=== PATIENT | female | born 2000 | race African-American/Black ===

== ENCOUNTER 2019-09-21 10:43 | Emergency (ER) | payer MEDICAID ==
[~2019-09-21] VITALS: Ht 170.2 cm; Wt 77.0 kg
[2019-09-21] MEDS ORDERED: TETANUS, DIPHTHERIA, PERTUSSIS VAC/PF 0.5ML (>7YR OLD) IM ONE (11:45)
[2019-09-21] MEDS ORDERED: BACITRACIN ZINC OINT UDPKT TOP ONE (11:45)
[2019-09-21] MEDS ORDERED: IBUPROFEN 600MG TABLET PO ONE (11:45)
[2019-09-21 12:18] VITALS: BP 134/90
== END 2019-09-21 12:22 | disposition home or self-care (01) ==
LOC: ER 10:43
DX: S01.511A Laceration without foreign body of lip, initial encounter (principal); Z88.8 Allergy status to other drugs, medicaments and biological substances; X58.XXXA Exposure to other specified factors, initial encounter; Y93.89 Activity, other specified; Y92.89 Other specified places as the place of occurrence of the external cause; Y99.8 Other external cause status
CPT/HCPCS: 12011; 90471; 90715; 99283

== ENCOUNTER 2019-10-23 01:43 | Emergency (ER) | payer MEDICAID ==
[~2019-10-23] VITALS: Ht 167.6 cm; Wt 78.0 kg
[2019-10-23] MEDS ORDERED: IBUPROFEN 600MG TABLET PO STA (03:25)
[2019-10-23 05:11] VITALS: BP 115/87
== END 2019-10-23 05:12 | disposition home or self-care (01) ==
LOC: ER 01:43
DX: M25.512 Pain in left shoulder (principal)
CPT/HCPCS: 73030; 99283